=== PATIENT | female | born 1985 | race Caucasian/White ===

== ENCOUNTER → 2016-12-15 | Outpatient (CLI) | payer OTHER ==
[~2016-12-15] MED LIST: ANAPROX DS550 MG PO; BACTRIM DS 8001 TA1 PO; BENADRYL25 MG PO; CELEXA20 MG PO; CIPRO250 MG PO; CIPROFLOXACIN 55 M1 OPH; CIPROFLOXACIN500 MG PO; CLEOCIN HCL150 MG PO; CYCLOBENZAPRINE5 M3 PO; DARVOCET N 1001 TAB PO; DESCOVY 200-251 EACH PO; FIORICET 325 MG1 TAB; FIORICET 325 MG1 TAB PO; KALETRA PO; KEFLEX500 MG PO; KENALOG0.1% TP; LAMIVUDINE PO; MACROBID100 M1 PO; MAXALT10 MG; MOTRIN800 MG PO; Motrin,Rufen800 MG PO; NKHM; PEN-VEE K500 MG PO; PEPCID20 MG PO; PHENERGAN25 M1 PO; PREDNICOT10 MG PO; PRENATAL1 TA3 PO; PRENATAL1 TA7 PO; ROBITUSSIN AC 110 ML PO; SUDAFED60 MG PO; TIVICAY50 M1 PO; TOPAMAX; TOPAMAX25 MG PO; TRAMADOL HCL50 MG PO; ULTRAM50 MG PO; VIBRAMYCIN100 MG PO; VOLTAREN50 M1 PO; Vicodin 5/500 505 MG PO; ZANTAC150 MG PO; ZIDOVUDINE PO; ZITHROMAX Z PA250 MG PO; ZOFRAN ODT4 MG SL; ZOFRAN4 MG PO; ZYRTEC10 MG PO; Zofran4 MG PO
[2016-12-15 15:16] LABS: HEMATOCRIT 40.6 % (37.0-47.0); HEMOGLOBIN 13.1 g/dl (12.0-16.0); MEAN CELL VOLUME 84.1 fl (81.0-99.0); MEAN CORPUSCULAR HGB 27.1 pg (27.0-31.0); MEAN CORPUSCULAR HGB CONC 32.3 g/dl (33.0-37.0); MEAN PLATELET VOLUME 9.6 fl (9.6-12.3); RED BLOOD COUNT 4.83 10*6/uL (4.10-5.10); RED CELL DISTRI WIDTH 13.5 % (0-14.5); WHITE BLOOD COUNT 9.8 10*3/uL (4.8-10.8)
[2016-12-15 15:35] LABS: ALBUMIN 3.6 gm/dl (3.1-4.5); BUN 11 mg/dl (7-24); CHLORIDE 106 mmol/L (98-107); CHOLESTEROL 131 mg/dL (<200); CREATININE 0.85 mg/dL (0.55-1.02); POTASSIUM 3.9 mmol/L (3.5-5.1); SGOT/AST 12 IU/L (3-35); SGPT/ALT 17 U/L (12-78); SODIUM 140 mmol/L (136-145); TOTAL PROTEIN 7.6 gm/dL (6.4-8.2); TRIGLYCERIDES 167 mg/dl (<150); VLDL CHOLESTEROL 33 mg/dL (6-40)
[2016-12-15 15:36] LABS: ALKALINE PHOSPHATASE 102 U/L (45-117); CPK 103 U/L (26-192); HDL CHOLESTEROL 49 mg/dl (40-60); LDL CHOLESTEROL 49 mg/dL (9-159)
== END | disposition home or self-care (01) ==
LOC: LAB 14:47
PROVIDERS: Family Medicine
DX: B20 Human immunodeficiency virus [HIV] disease (principal); E78.00 Pure hypercholesterolemia, unspecified; E55.9 Vitamin D deficiency, unspecified; R53.83 Other fatigue; R51 Headache

== ENCOUNTER → 2017-03-16 | Outpatient (CLI) | payer OTHER ==
[2017-03-16 15:11] LABS: BASO % 0.5 % (0.0-1.0); EOS # 0.1 10*3/uL (0.0-0.4); EOS % 1.7 % (1.0-4.0); HEMATOCRIT 38.7 % (37.0-47.0); HEMOGLOBIN 12.6 g/dl (12.0-16.0); LYMPH # 2.3 10*3/uL (1.3-4.4); LYMPH % 26.8 % (27.0-41.0); MEAN CELL VOLUME 81.5 fl (81.0-99.0); MEAN CORPUSCULAR HGB 26.5 pg (27.0-31.0); MEAN CORPUSCULAR HGB CONC 32.6 g/dl (33.0-37.0); MEAN PLATELET VOLUME 9.7 fl (9.6-12.3); MONO # 0.6 10*3/uL (0.1-1.0); MONO % 6.8 % (3.0-9.0); NEUT # 5.4 10*3/uL (2.3-7.9); NEUT % 63.8 % (47.0-73.0); PLATELET COUNT AUTOMATED 294 10*3/uL (130-400); RED BLOOD COUNT 4.75 10*6/uL (4.10-5.10); RED CELL DISTRI WIDTH 13.2 % (0-14.5); WHITE BLOOD COUNT 8.5 10*3/uL (4.8-10.8)
[2017-03-16 15:34] LABS: ALBUMIN 3.7 gm/dl (3.1-4.5); ALKALINE PHOSPHATASE 126 U/L (45-117); BUN 13 mg/dl (7-24); CHLORIDE 106 mmol/L (98-107); CHOLESTEROL 162 mg/dL (<200); CREATININE 0.89 mg/dL (0.55-1.02); HDL CHOLESTEROL 50 mg/dl (40-60); LDL CHOLESTEROL 83 mg/dL (9-159); POTASSIUM 3.8 mmol/L (3.5-5.1); SGOT/AST 14 IU/L (3-35); SGPT/ALT 28 U/L (12-78); SODIUM 140 mmol/L (136-145); TOTAL PROTEIN 7.6 gm/dL (6.4-8.2); TRIGLYCERIDES 145 mg/dl (<150); VLDL CHOLESTEROL 29 mg/dL (6-40)
[2017-03-17 06:10] LABS: HEMATOCRIT 36.9 % (34.0-46.6); HEMOGLOBIN 12.6 g/dL (11.1-15.9); RBC 4.73 x10E6/uL (3.77-5.28); WBC 8.7 x10E3/uL (3.4-10.8)
[2017-03-17 08:11] LABS: HEPATITIS B SURFACE AB 006395 Reactive (.)
[2017-03-17 13:08] LABS: ABSOLUTE CD 4 HELPER 906 /uL (359-1519); CD 4 POS LYMPH, % 41.2 % (30.8-58.5)
[2017-03-18 12:07] LABS: HIV-1 RNA BY PCR 20 (.); LOG10 HIV-1 RNA 1.301 (.)
[2017-03-18 22:05] LABS: MITOGEN VALUE >10.00 IU/mL (.); TB Ag MINUS NIL VALUE <0.00 IU/mL (.); TB Ag VALUE 0.08 IU/mL (.); TB GOLD Negative (Negative)
== END | disposition home or self-care (01) ==
LOC: LAB 14:05
PROVIDERS: Internal Medicine Infectious Disease
DX: B20 Human immunodeficiency virus [HIV] disease (principal); E78.00 Pure hypercholesterolemia, unspecified; E55.9 Vitamin D deficiency, unspecified; Z79.899 Other long term (current) drug therapy

== ENCOUNTER 2017-03-22 20:20 | Emergency (ER) | payer OTHER ==
[~2017-03-22] VITALS: Ht 157.4 cm; Wt 99.8 kg
[2017-03-22] MEDS ORDERED: ACYCLOVIR400 MG PO (21:30)
== END 2017-03-22 20:40 | disposition home or self-care (01) ==
LOC: ED 20:20
DX: B00.89 Other herpesviral infection (principal); M79.644 Pain in right finger(s); Z79.899 Other long term (current) drug therapy

== ENCOUNTER → 2017-09-18 | Outpatient (CLI) | payer OTHER ==
[~2017-09-18] MED LIST changes: +ACYCLOVIR400 MG PO
[2017-09-18 13:22] LABS: BASO % 0.5 % (0.0-1.0); EOS # 0.1 10*3/uL (0.0-0.4); EOS % 1.5 % (1.0-4.0); HEMATOCRIT 39.8 % (37.0-47.0); HEMOGLOBIN 12.6 g/dl (12.0-16.0); LYMPH # 2.3 10*3/uL (1.3-4.4); LYMPH % 26.4 % (27.0-41.0); MEAN CELL VOLUME 84.1 fl (81.0-99.0); MEAN CORPUSCULAR HGB 26.6 pg (27.0-31.0); MEAN CORPUSCULAR HGB CONC 31.7 g/dl (33.0-37.0); MEAN PLATELET VOLUME 9.5 fl (9.6-12.3); MONO # 0.7 10*3/uL (0.1-1.0); MONO % 8.3 % (3.0-9.0); NEUT # 5.6 10*3/uL (2.3-7.9); NEUT % 62.8 % (47.0-73.0); PLATELET COUNT AUTOMATED 320 10*3/uL (130-400); RED BLOOD COUNT 4.73 10*6/uL (4.10-5.10); WHITE BLOOD COUNT 8.8 10*3/uL (4.8-10.8)
[2017-09-18 13:34] LABS: ALBUMIN 3.7 gm/dl (3.1-4.5); ALKALINE PHOSPHATASE 117 U/L (45-117); BUN 12 mg/dl (7-24); CHLORIDE 105 mmol/L (98-107); CREATININE 0.84 mg/dL (0.55-1.02); POTASSIUM 3.8 mmol/L (3.5-5.1); SGOT/AST 21 IU/L (3-35); SGPT/ALT 32 U/L (12-78); SODIUM 137 mmol/L (136-145); TOTAL PROTEIN 7.9 gm/dL (6.4-8.2)
[2017-09-19 05:04] LABS: HEMATOCRIT 37.5 % (34.0-46.6); HEMOGLOBIN 12.4 g/dL (11.1-15.9); WBC 8.6 x10E3/uL (3.4-10.8)
[2017-09-19 17:07] LABS: ABSOLUTE CD 4 HELPER 952 /uL (359-1519); CD 4 POS LYMPH, % 41.4 % (30.8-58.5)
[2017-09-21 16:08] LABS: HIV 1 & 2 AB NOTE HIV-1 Positive (.); HIV 1 AB Positive (Negative); HIV 2 AB Negative (Negative)
[2017-09-24 11:54] LABS: HIV 1+2 AB + HIV1 P24 AG Reactive (Non Reactive)
== END | disposition home or self-care (01) ==
LOC: LAB 12:42
PROVIDERS: Internal Medicine Infectious Disease
DX: B20 Human immunodeficiency virus [HIV] disease (principal); E55.9 Vitamin D deficiency, unspecified; E78.00 Pure hypercholesterolemia, unspecified

== ENCOUNTER → 2018-02-12 | Outpatient (CLI) | payer OTHER ==
[2018-02-15 16:08] LABS: HIV 2 AB Negative (Negative); INTERPRETATION HIV-1 Positive (.)
[2018-02-16 10:02] LABS: HIV 1 AB Positive (Negative)
== END | disposition home or self-care (01) ==
LOC: LAB 08:26
PROVIDERS: Internal Medicine
DX: B20 Human immunodeficiency virus [HIV] disease (principal)

== ENCOUNTER → 2018-03-15 | Outpatient (CLI) | payer OTHER ==
[2018-03-16 07:07] LABS: HEMATOCRIT 40.8 % (34.0-46.6); HEMOGLOBIN 13.4 g/dL (11.1-15.9); RBC 5.06 x10E6/uL (3.77-5.28); WBC 8.9 x10E3/uL (3.4-10.8)
[2018-03-16 16:12] LABS: ABS CD19+ LYMPHS 197 /uL (12-645); ABS CD8 SUPPRESSOR 931 /uL (109-897); ABSOLUTE CD3 1999 /uL (622-2402); ABSOLUTE CD4 HELPER 1082 /uL (359-1519); CD4/CD8 RATIO 1.16 (0.92-3.72); PERCENT CD19+LYMPHS 8.2 % (3.3-25.4); PERCENT CD3 POS LYMPHS 83.3 % (57.5-86.2); PERCENT CD4 POS LYMPHS 45.1 % (30.8-58.5); PERCENT CD8 POS LYMPHS 38.8 % (12.0-35.5)
== END | disposition home or self-care (01) ==
LOC: LAB 12:41
PROVIDERS: Internal Medicine
DX: B20 Human immunodeficiency virus [HIV] disease (principal)

== ENCOUNTER → 2018-07-14 | Outpatient (CLI) | payer OTHER ==
[2018-07-15 08:10] LABS: HEMATOCRIT 39.4 % (34.0-46.6); HEMOGLOBIN 12.9 g/dL (11.1-15.9); RBC 4.91 x10E6/uL (3.77-5.28); WBC 10.9 x10E3/uL (3.4-10.8)
[2018-07-15 13:09] LABS: ABS CD19+ LYMPHS 195 /uL (12-645); ABS CD8 SUPPRESSOR 746 /uL (109-897); ABSOLUTE CD3 1667 /uL (622-2402); ABSOLUTE CD4 HELPER 935 /uL (359-1519); CD4/CD8 RATIO 1.25 (0.92-3.72); PERCENT CD19+LYMPHS 9.3 % (3.3-25.4); PERCENT CD3 POS LYMPHS 79.4 % (57.5-86.2); PERCENT CD4 POS LYMPHS 44.5 % (30.8-58.5); PERCENT CD8 POS LYMPHS 35.5 % (12.0-35.5)
[2018-07-16 09:06] LABS: HIV-1 RNA BY PCR <20 (.)
== END | disposition home or self-care (01) ==
LOC: LAB 07-13 16:54
PROVIDERS: Internal Medicine
DX: B20 Human immunodeficiency virus [HIV] disease (principal)

== ENCOUNTER 2018-11-14 19:37 | Emergency (ER) | payer OTHER ==
[~2018-11-14] VITALS: Ht 157.4 cm; Wt 59.0 kg
[2018-11-14] MEDS ORDERED: TESSALON PERLE100 MG PO (21:01)
[2018-11-14] MEDS ORDERED: AVPAK AZITHROM250 MG PO (21:01)
== END 2018-11-14 21:06 | disposition home or self-care (01) ==
LOC: ED 19:37
DX: J40 Bronchitis, not specified as acute or chronic (principal); G43.909 Migraine, unspecified, not intractable, without status migrainosus; R11.0 Nausea; Z79.899 Other long term (current) drug therapy; Z90.49 Acquired absence of other specified parts of digestive tract

== ENCOUNTER → 2018-12-15 | Outpatient (CLI) | payer OTHER ==
[~2018-12-15] MED LIST changes: +AVPAK AZITHROM250 MG PO; +TESSALON PERLE100 MG PO
[2018-12-15 08:50] LABS: HEMATOCRIT 39.8 % (37.0-47.0); HEMOGLOBIN 12.5 g/dl (12.0-16.0); MEAN CELL VOLUME 83.6 fl (81.0-99.0); MEAN CORPUSCULAR HGB 26.3 pg (27.0-31.0); MEAN CORPUSCULAR HGB CONC 31.4 g/dl (33.0-37.0); MEAN PLATELET VOLUME 9.5 fl (9.6-12.3); RED BLOOD COUNT 4.76 10*6/uL (4.10-5.10); RED CELL DISTRI WIDTH 13.6 % (0-14.5); WHITE BLOOD COUNT 13.8 10*3/uL (4.8-10.8)
[2018-12-15 09:24] LABS: ALBUMIN 3.7 gm/dl (3.1-4.5); BUN 12 mg/dl (7-24); CHLORIDE 107 mmol/L (98-107); CHOLESTEROL 128 mg/dL (<200); CREATININE 0.89 mg/dL (0.55-1.02); HDL CHOLESTEROL 53 mg/dl (40-60); LDL CHOLESTEROL 59 mg/dL (9-159); POTASSIUM 3.6 mmol/L (3.5-5.1); SGOT/AST 12 IU/L (3-35); SGPT/ALT 23 U/L (12-78); SODIUM 138 mmol/L (136-145); TRIGLYCERIDES 79 mg/dl (<150); VLDL CHOLESTEROL 16 mg/dL (6-40)
[2018-12-15 09:28] LABS: ALKALINE PHOSPHATASE 126 U/L (45-117); BETA-HCG, QUANT < 1.0 mIU/mL (1-3); TOTAL PROTEIN 7.4 gm/dL (6.4-8.2)
== END | disposition home or self-care (01) ==
LOC: LAB 08:34
PROVIDERS: Family Medicine
DX: E78.00 Pure hypercholesterolemia, unspecified (principal); R11.0 Nausea; R19.7 Diarrhea, unspecified

== ENCOUNTER → 2019-03-04 | Outpatient (CLI) | payer OTHER ==
[2019-03-04 13:59] LABS: BASO % 0.5 % (0.0-1.0); EOS # 0.1 10*3/uL (0.0-0.4); EOS % 1.4 % (1.0-4.0); HEMATOCRIT 40.1 % (37.0-47.0); HEMOGLOBIN 12.6 g/dl (12.0-16.0); LYMPH # 2.1 10*3/uL (1.3-4.4); LYMPH % 26.7 % (27.0-41.0); MEAN CELL VOLUME 83.9 fl (81.0-99.0); MEAN CORPUSCULAR HGB 26.4 pg (27.0-31.0); MEAN CORPUSCULAR HGB CONC 31.4 g/dl (33.0-37.0); MEAN PLATELET VOLUME 9.3 fl (9.6-12.3); MONO # 0.6 10*3/uL (0.1-1.0); MONO % 7.3 % (3.0-9.0); NEUT % 62.8 % (47.0-73.0); PLATELET COUNT AUTOMATED 355 10*3/uL (130-400); RED BLOOD COUNT 4.78 10*6/uL (4.10-5.10); RED CELL DISTRI WIDTH 13.5 % (0-14.5)
[2019-03-04 14:13] LABS: ALBUMIN 3.5 gm/dl (3.1-4.5); ALKALINE PHOSPHATASE 113 U/L (45-117); BUN 10 mg/dl (7-24); CHLORIDE 109 mmol/L (98-107); CREATININE 1.01 mg/dL (0.55-1.02); SGOT/AST 16 IU/L (3-35); SGPT/ALT 29 U/L (12-78); SODIUM 142 mmol/L (136-145); TOTAL PROTEIN 7.2 gm/dL (6.4-8.2)
[2019-03-05 21:08] LABS: HIV-1 RNA BY PCR <20 (.)
[2019-03-08 19:06] LABS: TB1 Ag VALUE 0.07 IU/mL (.)
== END | disposition home or self-care (01) ==
LOC: LAB 13:15
PROVIDERS: Internal Medicine
DX: D84.9 Immunodeficiency, unspecified (principal)

== ENCOUNTER → 2019-03-15 | Outpatient (CLI) | payer OTHER ==
[2019-03-16 03:03] LABS: HEMATOCRIT 38.4 % (34.0-46.6); HEMOGLOBIN 12.8 g/dL (11.1-15.9); RBC 4.84 x10E6/uL (3.77-5.28); WBC 9.9 x10E3/uL (3.4-10.8)
[2019-03-16 16:05] LABS: ABS CD19+ LYMPHS 249 /uL (12-645); ABS CD8 SUPPRESSOR 1065 /uL (109-897); ABSOLUTE CD 4 HELPER 1260 /uL (359-1519); ABSOLUTE CD3 2322 /uL (622-2402); ABSOLUTE CD4 HELPER 1308 /uL (359-1519); CD4/CD8 RATIO 1.23 (0.92-3.72); PERCENT CD19+LYMPHS 8.3 % (3.3-25.4); PERCENT CD3 POS LYMPHS 77.4 % (57.5-86.2); PERCENT CD4 POS LYMPHS 43.6 % (30.8-58.5); PERCENT CD8 POS LYMPHS 35.5 % (12.0-35.5)
== END | disposition home or self-care (01) ==
LOC: LAB 15:07
PROVIDERS: Internal Medicine
DX: D84.9 Immunodeficiency, unspecified (principal)

== ENCOUNTER 2019-03-25 10:14 | Emergency (ER) | payer OTHER ==
[~2019-03-25] VITALS: Ht 157.4 cm; Wt 97.5 kg
[2019-03-25 11:05] LABS: BASO % 0.5 % (0.0-1.0); EOS # 0.1 10*3/uL (0.0-0.4); EOS % 3.3 % (1.0-4.0); HEMATOCRIT 40.7 % (37.0-47.0); LYMPH # 1.2 10*3/uL (1.3-4.4); LYMPH % 34.1 % (27.0-41.0); MEAN CELL VOLUME 82.4 fl (81.0-99.0); MEAN CORPUSCULAR HGB 26.3 pg (27.0-31.0); MEAN CORPUSCULAR HGB CONC 31.9 g/dl (33.0-37.0); MEAN PLATELET VOLUME 9.8 fl (9.6-12.3); MONO # 0.4 10*3/uL (0.1-1.0); MONO % 10.2 % (3.0-9.0); NEUT # 1.9 10*3/uL (2.3-7.9); NEUT % 51.6 % (47.0-73.0); PLATELET COUNT AUTOMATED 250 10*3/uL (130-400); RED BLOOD COUNT 4.94 10*6/uL (4.10-5.10); WHITE BLOOD COUNT 3.6 10*3/uL (4.8-10.8)
[2019-03-25 11:21] LABS: ALBUMIN 3.7 gm/dl (3.1-4.5); ALKALINE PHOSPHATASE 123 U/L (45-117); BUN 13 mg/dl (7-24); CHLORIDE 111 mmol/L (98-107); CREATININE 0.93 mg/dL (0.55-1.02); POTASSIUM 3.5 mmol/L (3.5-5.1); SGOT/AST 30 IU/L (3-35); SGPT/ALT 58 U/L (12-78); SODIUM 138 mmol/L (136-145); TOTAL PROTEIN 7.4 gm/dL (6.4-8.2)
[2019-03-25 12:52] LABS: BILIRUBIN NEGATIVE (NEGATIVE); BLOOD TRACE-INTACT (NEGATIVE); CLARITY SL CLOUDY (CLEAR); COLOR YELLOW (YELLOW); GLUCOSE NEGATIVE (NEGATIVE); KETONE 3+ (NEGATIVE); LEUKO ESTERASE NEGATIVE (NEGATIVE); NITRITE NEGATIVE (NEGATIVE); UROBILINOGEN 0.2 E.U./dl (0.2-1.0)
[2019-03-25 13:08] LABS: BACTERIA 3+
[2019-03-25 13:10] LABS: EPITHELIAL CELLS 15-20
[2019-03-25] MEDS ORDERED: PROAIR HFA8.5 GM INH (17:02)
[2019-03-25] MEDS ORDERED: CODEINE-GUAIFE120 M1 PO (17:02)
== END 2019-03-25 16:55 | disposition home or self-care (01) ==
LOC: ED 10:14
PROVIDERS: Nurse Practitioner
DX: J10.1 Influenza due to other identified influenza virus with other respiratory manifestations (principal); R11.2 Nausea with vomiting, unspecified; R19.7 Diarrhea, unspecified; Z90.49 Acquired absence of other specified parts of digestive tract; Z79.2 Long term (current) use of antibiotics; Z79.899 Other long term (current) drug therapy; G43.909 Migraine, unspecified, not intractable, without status migrainosus

== ENCOUNTER → 2019-10-16 | Outpatient (CLI) | payer OTHER ==
[~2019-10-16] MED LIST changes: +CODEINE-GUAIFE120 M1 PO; +PROAIR HFA8.5 GM INH
[2019-10-16 09:21] LABS: BASO # 0.1 10*3/uL (0.0-0.1); BASO % 0.6 % (0.0-1.0); EOS # 0.2 10*3/uL (0.0-0.4); HEMATOCRIT 39.2 % (37.0-47.0); LYMPH # 2.4 10*3/uL (1.3-4.4); LYMPH % 28.7 % (27.0-41.0); MEAN CELL VOLUME 84.7 fl (81.0-99.0); MEAN CORPUSCULAR HGB 26.6 pg (27.0-31.0); MEAN CORPUSCULAR HGB CONC 31.4 g/dl (33.0-37.0); MEAN PLATELET VOLUME 9.5 fl (9.6-12.3); MONO # 0.7 10*3/uL (0.1-1.0); MONO % 8.1 % (3.0-9.0); NEUT # 5.1 10*3/uL (2.3-7.9); NEUT % 60.4 % (47.0-73.0); PLATELET COUNT AUTOMATED 342 10*3/uL (130-400); RED BLOOD COUNT 4.63 10*6/uL (4.10-5.10); RED CELL DISTRI WIDTH 13.4 % (0-14.5); WHITE BLOOD COUNT 8.5 10*3/uL (4.8-10.8)
[2019-10-16 09:44] LABS: ALBUMIN 3.4 gm/dl (3.1-4.5); ALKALINE PHOSPHATASE 105 U/L (45-117); BUN 10 mg/dl (7-24); CHLORIDE 109 mmol/L (98-107); CREATININE 0.87 mg/dL (0.55-1.02); POTASSIUM 4.1 mmol/L (3.5-5.1); SGOT/AST 20 IU/L (3-35); SGPT/ALT 39 U/L (12-78); SODIUM 139 mmol/L (136-145); TOTAL PROTEIN 7.1 gm/dL (6.4-8.2)
[2019-10-18 03:06] LABS: HEMATOCRIT 39.6 % (34.0-46.6); HEMOGLOBIN 12.3 g/dL (11.1-15.9); RBC 4.65 x10E6/uL (3.77-5.28); WBC 7.8 x10E3/uL (3.4-10.8)
[2019-10-18 08:11] LABS: HEP B CORE AB, IGM Negative (Negative); HEPATITIS B SURFACE AG Negative (Negative); HEPATITIS C VIRUS ANTIBODY <0.1 s/co (0.0-0.9)
[2019-10-18 16:12] LABS: ABSOLUTE CD 4 HELPER 953 /uL (359-1519); CD 4 POS LYMPH, % 43.3 % (30.8-58.5)
[2019-10-19 00:06] LABS: HIV-1 RNA BY PCR <20 (.)
[2019-10-19 17:10] LABS: TB1 Ag VALUE 0.03 IU/mL (.)
== END | disposition home or self-care (01) ==
LOC: LAB 07:57
PROVIDERS: Internal Medicine
DX: B20 Human immunodeficiency virus [HIV] disease (principal)

== ENCOUNTER → 2019-11-29 | Outpatient (CLI) | payer OTHER | END | disposition home or self-care (01) | LOC: COVID19 05:37 | PROVIDERS: ATTEND Family Medicine | DX: Z20.828 Contact with and (suspected) exposure to other viral communicable diseases (principal) ==

== ENCOUNTER 2020-04-11 09:03 | Emergency (ER) | payer OTHER ==
[~2020-04-11] VITALS: Ht 157.4 cm; Wt 99.8 kg
== END 2020-04-11 11:58 | disposition home or self-care (01) ==
LOC: ED 09:03
DX: S80.01XA Contusion of right knee, initial encounter (principal); S50.02XA Contusion of left elbow, initial encounter; G43.909 Migraine, unspecified, not intractable, without status migrainosus; Z90.49 Acquired absence of other specified parts of digestive tract; Z79.899 Other long term (current) drug therapy; V89.2XXA Person injured in unspecified motor-vehicle accident, traffic, initial encounter; Y93.89 Activity, other specified; Y92.89 Other specified places as the place of occurrence of the external cause; Y99.8 Other external cause status

== ENCOUNTER 2021-03-06 04:26 | Emergency (ER) | payer OTHER | END 2021-03-06 05:24 | disposition home or self-care (01) | LOC: ED 04:26 | DX: T23.201A Burn of second degree of right hand, unspecified site, initial encounter (principal); T21.12XA Burn of first degree of abdominal wall, initial encounter; X19.XXXA Contact with other heat and hot substances, initial encounter; Y93.89 Activity, other specified; Y92.89 Other specified places as the place of occurrence of the external cause; Y99.0 Civilian activity done for income or pay ==

== ENCOUNTER → 2021-07-03 | Outpatient (CLI) | payer OTHER ==
[2021-07-03 11:53] LABS: BASO % 0.4 % (0.0-1.0); EOS # 0.2 10*3/uL (0.0-0.4); EOS % 1.8 % (1.0-4.0); LYMPH # 2.4 10*3/uL (1.3-4.4); LYMPH % 24.5 % (27.0-41.0); MEAN CELL VOLUME 80.2 fl (81.0-99.0); MEAN CORPUSCULAR HGB 25.1 pg (27.0-31.0); MEAN CORPUSCULAR HGB CONC 31.3 g/dl (33.0-37.0); MEAN PLATELET VOLUME 9.8 fl (9.6-12.3); MONO # 0.6 10*3/uL (0.1-1.0); MONO % 6.5 % (3.0-9.0); NEUT # 6.4 10*3/uL (2.3-7.9); NEUT % 66.5 % (47.0-73.0); PLATELET COUNT AUTOMATED 349 10*3/uL (130-400); RED BLOOD COUNT 4.99 10*6/uL (4.10-5.10); RED CELL DISTRI WIDTH 14.6 % (0-14.5); WHITE BLOOD COUNT 9.7 10*3/uL (4.8-10.8)
[2021-07-03 12:18] LABS: BUN 14 mg/dl (7-24); CHLORIDE 110 mmol/L (98-107); CREATININE 0.84 mg/dL (0.55-1.02); POTASSIUM 4.3 mmol/L (3.5-5.1); PREALBUMIN 29 mg/dl (20-40); SGOT/AST 13 IU/L (3-35); SGPT/ALT 24 U/L (12-78); SODIUM 139 mmol/L (136-145); TRIGLYCERIDES 181 mg/dl (<150)
[2021-07-03 12:27] LABS: VITAMIN D, 25-HYDROXY 12.3 ng/mL (30-100)
[2021-07-03 12:28] LABS: ALKALINE PHOSPHATASE 97 U/L (45-117); CHOLESTEROL 149 mg/dL (<200); FERRITIN 28.9 ng/mL (10.0-291.0); TOTAL PROTEIN 7.5 gm/dL (6.4-8.2)
== END | disposition home or self-care (01) ==
LOC: LAB 11:20
PROVIDERS: ATTEND Student in an Organized Health Care Education/Training Program
DX: E66.01 Morbid (severe) obesity due to excess calories (principal)